=== PATIENT | male | born 2000 | race Hispanic/Latino ===

== ENCOUNTER 2023-12-13 17:19 | Emergency (ER) | payer SELFPAY ==
[2023-12-13 17:22] VITALS: BP 162/100
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
[2023-12-13 19:09] VITALS: BP 142/79
[2023-12-13 19:10] VITALS: BP 142/79
== END 2023-12-13 19:11 | disposition home or self-care (01) ==
LOC: EMR 17:19
PROVIDERS: EMERGENCY PHYSICIAN Emergency Medicine
DX: S16.1XXA Strain of muscle, fascia and tendon at neck level, initial encounter (principal); V43.52XA Car driver injured in collision with other type car in traffic accident, initial encounter
CPT/HCPCS: 99283; 72040